=== PATIENT | female | born 1960 ===

== ENCOUNTER 2021-10-20 07:26 | Day surgery (SDC) | payer BC ==
[~2021-10-20] VITALS: Ht 167.6 cm; Wt 78.6 kg
[2021-10-20 08:01] VITALS: BP 126/76; PULSE 66; TEMP 97.3
[2021-10-20 09:05] VITALS: BP 99/68; PULSE 62; TEMP 97.3
--- NOTE | 2021-10-20 09:05 | NUR ---
Pt returned via cart to recliner in [facility]. VSS-see flowsheet. Oriented. Given water and a muffin per pt request. Legs elevated and warm blanket given. Call light placed in reach. Pt denies needs or complaints at this time.
[2021-10-20 09:15] VITALS: BP 108/75; PULSE 52
[2021-10-20 09:30] VITALS: BP 108/71; PULSE 60
--- NOTE | 2021-10-20 09:38 | NUR ---
Pt tolerated oral intake. VS remain stable. Dr Gilbert visited with pt post procedure. IV removed, pressure dressing applied. Pt dressing independently and will call to pick her up.
--- NOTE | 2021-10-20 10:00 | NUR ---
Pt taken via wheelchair to private vehicle for dc home with driving.
== END 2021-10-20 10:00 | disposition home or self-care (01) ==
LOC: SDCO 07:26
DX: Z12.11 Encounter for screening for malignant neoplasm of colon (principal); D12.3 Benign neoplasm of transverse colon; K64.0 First degree hemorrhoids; Z86.16 Personal history of COVID-19
CPT/HCPCS: 32149